=== PATIENT | male | born 1985 | race Caucasian/White ===

== ENCOUNTER 2016-12-25 11:03 | Emergency (ER) | payer OTHER ==
--- NOTE | ~2016-12-25 | CR94 ---
[facility]. [facility] A Service of [facility] RADIOLOGY TEXT RESULTS PATIENT: BRENDA DIAZ LOCATION: SED : [birth year] UNIT #: [id number] AGE: [address]: Pierre Hansen MD SEX: M ORDER DR: [id number] [address] [address] [id number] E MR#: [id number] Acc #: [id number] NAME: BRENDA DIAZ. : 1985 SEX: M STUDY DATE/TIME: 12/25/2016 10:42 UNIT: SED ROOM: STUDY DESCRIPTION: CR Elbow Min 3 Views Rt Attending Physician: Pierre Hansen M.D. Ordering Physician: Pierre Hansen M.D. Primary Care Physician: Primary Care Physician No MEDICAL IMAGING REPORT This report is preliminary unless electronic signature is present. EXAM Right elbow 3 views 12/25/2016 1042 hours HISTORY 31-year-old man who was knocked down while playing basketball last night complaining of elbow, wrist and forearm pain since fall. COMPARISON None. FINDINGS AP, lateral and oblique views demonstrate a definite elbow joint effusion which implies the presence of a fracture. The oblique view suggests a subtle lucency extending to the articular surface of the radius with no step-off of the articular surface seen. In an adult, the fracture is statistically most likely in the radial head. No definite humerus or olecranon fracture is seen. IMPRESSION There is a definite elbow joint effusion which implies the presence of a fracture. In an adult, this is statistically most likely in the radial head. On the oblique view, question is raised of a linear lucency extending to the articular surface of the radial head without definite cortical step off seen. No fracture is seen in the humerus or the proximal ulna. STAT * RESULT Dictated by... Coty Guajardo M.D. [facility] A Service of [facility] RADIOLOGY TEXT RESULTS PATIENT: BRENDA DIAZ [place] [facility] [place] [birth year] [place] #: [id number] AGE: [address]: Pierre Hansen MD SEX: M ORDER DR: THIS IS AN ELECTRONICALLY VERIFIED REPORT Coty Guajardo M.D. at 12/25/2016 2:27 PM JAZLYN/mana TD: 12/25/2016 11:22 JOB #: [id number] MEDICAL IMAGING REPORT
--- NOTE | ~2016-12-25 | CR286 ---
[facility]. [facility] A Service of [facility] & [facility] RADIOLOGY TEXT RESULTS PATIENT: BRENDA DIAZ LOCATION: SED : [birth year] UNIT #: [id number] AGE: [address]: Pierre Hansen MD SEX: M ORDER DR: [id number] [address] [address] [id number] E MR#: [id number] Acc #: [id number] NAME: BRENDA DIAZ. : 1985 SEX: M STUDY DATE/TIME: 12/25/2016 10:42 UNIT: SED ROOM: STUDY DESCRIPTION: CR Wrist W Navicular Min 3 Rt Attending Physician: Pierre Hansen M.D. Ordering Physician: Pierre Hansen M.D. Primary Care Physician: Primary Care Physician No MEDICAL IMAGING REPORT This report is preliminary unless electronic signature is present. EXAM Right wrist 4 views 12/25/2016 10:42 hours HISTORY The patient was knocked down while playing basketball last night and complaining of wrist pain with pain through the elbow, abrasion over the olecranon. COMPARISON None. FINDINGS AP, lateral and oblique views are performed with an ulnarly deviated AP view. The distal radius and ulnar are intact. The carpal bones are normal. There is no wrist fracture. There is an old healed distal fifth metacarpal fracture. IMPRESSION 1. No acute wrist fracture. 2. Old healed distal fifth metacarpal fracture. Dictated by... Coty Guajardo M.D. THIS IS AN ELECTRONICALLY VERIFIED REPORT Coty Guajardo M.D. at 12/25/2016 2:27 PM JAZLYN/lana TD: 12/25/2016 12:52 JOB #: [id number] MEDICAL IMAGING REPORT
--- NOTE | ~2016-12-25 | CR133 ---
[facility] A Service [facility] RADIOLOGY TEXT RESULTS PATIENT: BRENDA DIAZ LOCATION: SED : [birth year] UNIT #: [id number] AGE: [address]: Pierre Hansen MD SEX: M ORDER DR: [id number] [place] [id number] E MR#: [id number] Acc #: [id number] NAME: BRENDA DIAZ. : 1985 SEX: M STUDY DATE/TIME: 12/25/2016 10:42 UNIT: SED ROOM: STUDY DESCRIPTION: CR Forearm 2 View Rt Attending Physician: Pierre Hansen M.D. Ordering Physician: Pierre Hansen M.D. Primary Care Physician: No Primary Care Physician MEDICAL IMAGING REPORT This report is preliminary unless electronic signature is present. EXAM Right forearm, 2 views, 12/25/2016, 1042 hours. CLINICAL HISTORY Patient was knocked down while playing basketball last night with pain in the elbow, forearm, and wrist and abrasion over the olecranon. COMPARISON STUDIES None FINDINGS AP and lateral views of the radius and ulna again demonstrate an elbow joint effusion which implies presence of a fracture at the elbow. No definite fracture is seen. Distal radius and ulna are intact. IMPRESSION There is an elbow joint effusion which implies the presence of a fracture about the elbow. No definite fracture is seen at the elbow or forearm. Dictated by... Coty Guajardo M.D. THIS IS AN ELECTRONICALLY VERIFIED REPORT Coty Guajardo M.D. at 12/25/2016 2:27 PM CHRISTIEM/michelle TD: 12/25/2016 12:54 JOB #: [id number] [facility] A Service [facility] RADIOLOGY TEXT RESULTS PATIENT: BRENDA DIAZ LOCATION: SED : [birth year] UNIT #: [id number] AGE: [address]: Pierre Hansen MD SEX: M ORDER DR: MEDICAL IMAGING REPORT
[~2016-12-25 11:03] MED LIST: CIPRO PO; FLOMAX0.4 M1 PO; NAPROXEN PO; NO MEDICATIONS; PERCOCET 5-3251 TAB PO; PHENERGAN25 MG PO; VICODIN 5/1 TAB 5/50 PO
== END 2016-12-25 12:20 | disposition home or self-care (01) ==
LOC: SED 11:03
DX: S42.401A Unspecified fracture of lower end of right humerus, initial encounter for closed fracture (principal); W19.XXXA Unspecified fall, initial encounter
CPT/HCPCS: 29105; 73080; 73090; 73110; 90471; 90715; 96372; 99284; J1885